=== PATIENT | female | born 1980 | race Caucasian/White ===

== ENCOUNTER 2018-11-29 14:58 | Emergency (ER) | payer BC, OTHER ==
[2018-11-29 15:18] VITALS: PULSE 72
[2018-11-29] MEDS ORDERED: ZOFRAN ODT 4 MG PO ONE (15:30)
[2018-11-29] MEDS ORDERED: MORPHINE SULFATE 4 MG INJ IV ONE (15:30)
[2018-11-29] MEDS ORDERED: Sodium Chloride 0.9% 1000 ML 1,000 ML IV STA (15:30)
--- NOTE | 2018-11-29 15:37 | ERPHSYRPT ---
- History of Present Illness Time Seen by Provider: 11/29/18 15:26 Historian: patient Exam Limitations: no limitations Patient Subjective Stated Complaint: Sudden onset lower abdominal pain with N&V Triage Nursing Assessment: Pt c/o of sudden onset lower abdominal pain that began approx 1.5 hours after eating lunch, BP 157/81, rates pain 8/10, afebrile , bowel sounds heard in all 4 quadrants, came in by wheelchair doubled over and then began vomiting Physician History: 38-year-old white female who arrives with complaint of suprapubic abdominal pain and also burning pain in the periumbilical region. Patient states that she ate lunch and then approximately 1-1/2 hours later she began to have severe crampy abdominal pain suprapubic region associated also with burning pain in the periumbilical region. She states she had vomiting. She continues with the suprapubic abdominal pain and abdominal pain. Past medical history negative past surgical history includes . Social history occasional alcohol, denies tobacco or illicit drug use. Timing/Duration: today (began at approximately 2:30 PM) Activities at Onset: none Quality: burning (Burning pain periumbilical region), cramping (CRAMPING SUPRAPUBIC REGION) Abdominal Pain Onset Location: periumbilical, suprapubic Pain Radiation: no radiation Severity of Pain-Max: moderate Severity of Pain-Current: moderate Modifying Factors: Improves With: eating, other (Patient had eaten one and a half hours prior to onset of symptoms). Worsens With: analgesics, antacids, breathing, coughing, defecating, exercise, lying down, movement, palpation, rest , urinating, vomiting, position, walking Associated Symptoms: nausea, vomiting, No back, No chest pain, No diaphoresis, No diarrhea, No fever/chills, No fatigue, No headache, No heartburn, No loss of appetite, No neck pain, No rash, No shortness of breath, No syncope, No weakness , No other Previous symptoms: no prior history Allergies/Adverse Reactions: No Known Drug Allergies Allergy (Unverified 11/29/18 15:18) Home Medications: Prednisone 10 mg [Deltasone 10 mg] 10 mg PO UD 11/29/18 [History] - Review of Systems Constitutional: No Fever, No Chills Eyes: No Symptoms Ears, Nose, & Throat: No Symptoms Respiratory: No Cough, No Dyspnea Cardiac: No Chest Pain, No Edema, No Syncope Abdominal/Gastrointestinal: Abdominal Pain, Nausea, Vomiting, No Diarrhea, No Constipation, No Hematemesis, No Hematochezia, No Melena, No Dysphagia, No Appetite Changes Genitourinary Symptoms: No Dysuria Musculoskeletal: No Back Pain, No Neck Pain Skin: No Rash Neurological: No Dizziness, No Focal Weakness, No Sensory Changes Psychological: No Symptoms Endocrine: No Symptoms All Other Systems: Reviewed and Negative - Past Medical History Pertinent Past Medical History: No - Past Surgical History Female Surgical History: Section - Social History Smoking Status: Never smoker Exposure to second hand smoke: No Drug Use: none Patient Lives Alone: No - Female History Hx Last Menstrual Period: 11/27/2018 Hx Now: No - Nursing Vital Signs Nursing Vital Signs: Initial Vital Signs Temperature 97.8 F 11/29/18 15:05 Pulse Rate 72 11/29/18 15:05 Respiratory Rate 25 H 11/29/18 15:05 Blood Pressure 157/81 11/29/18 15:05 O2 Sat by Pulse Oximetry 99 11/29/18 15:05 Pain Scale Pain Intensity 4 - Physical Exam General Appearance: moderate distress, alert Eye Exam: PERRL/EOMI, eyes nml inspection Ears, Nose, Throat Exam: normal ENT inspection, pharynx normal, moist mucous membranes Neck Exam: normal inspection, non-tender, supple, full range of motion Respiratory Exam: normal breath sounds, lungs clear, No respiratory distress Cardiovascular Exam: regular rate/rhythm, normal heart sounds, capillary refill <2 sec Gastrointestinal/Abdomen Exam: soft, normal bowel sounds, tenderness ( suprapubic tenderness), No distention, No mass, No ecchymosis, No pulsatile mass , No rebound, No hernia, No hepatomegaly, No organomegaly, No splenomegaly Back Exam: normal inspection, normal range of motion, No CVA tenderness, No vertebral tenderness Extremity Exam: normal inspection, normal range of motion, pelvis stable Neurologic Exam: alert, oriented x 3, cooperative, launch engineer II-XII nml as tested, normal mood/affect, nml cerebellar function, sensation nml, No motor deficits Skin Exam: normal color, warm, dry SpO2 Interpretation: normal (99%) SpO2: 99 - Course Nursing assessment & vital signs reviewed: Yes - CT Exams Abdomen/Pelvis CT Interpretation: Discussed w/radiologist (CT abdomen and pelvis: Impression 1. Large left adnexal cystic mass (6.71.47.0 cm), probably ovary in etiology. tiny cul-de-sac fluid. 2. Fecal stasis without obstruction. 3. Hepatic hemangioma) Ordered Tests: Active Orders 24 hr Category Date Time Status IV Insertion STAT Care 11/29/18 15:30 Active ABDOMEN AND PELVIS W CONTRAST [CT] Stat Exams 11/29/18 16:33 Completed AMYLASE Stat Lab 11/29/18 15:40 Completed CBC W DIFF Stat Lab 11/29/18 15:40 Completed CMP Stat Lab 11/29/18 15:40 Completed HCG QUALITATIVE,SERUM Stat Lab 11/29/18 15:40 Completed LIPASE Stat Lab 11/29/18 15:40 Completed UA W/RFX UR CULTURE Stat Lab 11/29/18 16:36 Completed Medication Summary Discontinued Medications Generic Name Dose Route Start Last Admin Trade Name Freq PRN Reason Stop Dose Admin Sodium Chloride 1,000 mls @ 999 mls/hr 11/29/18 15:30 11/29/18 16:45 Sodium Chloride 0.9% 1000 Ml IV 11/29/18 16:30 Infused .Q1H1M STA Infusion Sodium Chloride Confirm 11/29/18 15:41 Sodium Chloride 0.9% 1000 Ml Administered 11/29/18 15:42 Dose 1,000 mls @ ud .ROUTE .STK-MED ONE Morphine Sulfate 4 mg 11/29/18 15:30 11/29/18 15:42 Morphine Sulfate 4 Mg Inj IV 11/29/18 15:31 4 mg STAT ONE Administration Morphine Sulfate Confirm 11/29/18 15:41 Morphine Sulfate 4 Mg Inj Administered 11/29/18 15:42 Dose 4 mg .ROUTE .STK-MED ONE Ondansetron HCl 4 mg 11/29/18 15:30 11/29/18 15:42 Zofran Odt 4 Mg PO 11/29/18 15:31 4 mg STAT ONE Administration Ondansetron HCl Confirm 11/29/18 15:40 Zofran Odt 4 Mg Administered 11/29/18 15:41 Dose 4 mg .ROUTE .STK-MED ONE Lab/Rad Data: Laboratory Result Diagrams 11/29/18 15:40 11/29/18 15:40 Laboratory Results 11/29/18 11/29/18 11/29/18 Range/Units 16:36 15:40 15:40 WBC (4.0-10.5) K/mm3 RBC (4.1-5.4) M/mm3 Hgb (12.0-16.0) gm/dl Hct (35-47) % MCV (78-100) fl MCH (26-32) pg MCHC (32-36) g/dl RDW (11.5-14.0) % Plt Count (150-450) K/mm3 MPV (6-9.5) fl Gran % (36.0-66.0) % Eos # (Auto) (0-0.5) Absolute Lymphs (auto) (1.0-4.6) Absolute Monos (auto) (0.0-1.3) Lymphocytes % (24.0-44.0) % Monocytes % (0.0-12.0) % Eosinophils % (0.00-5.0) % Basophils % (0.0-0.4) % Absolute Granulocytes (1.4-6.9) Basophils # (0-0.4) Sodium 136 L (137-145) mmol/L Potassium 3.6 (3.5-5.1) mmol/L Chloride 101 (98-107) mmol/L Carbon Dioxide 24 (22-30) mmol/L Anion Gap 14.8 (5-15) MEQ/L BUN 17 (7-17) mg/dL Creatinine 0.66 (0.52-1.04) mg/dL Estimated GFR > 60.0 ML/MIN Glucose 141 H (74-106) mg/dL Calcium 9.5 (8.4-10.2) mg/dL Total Bilirubin 0.30 (0.2-1.3) mg/dL AST 16 (14-36) U/L ALT 19 (0-35) U/L Alkaline Phosphatase 78 (38-126) U/L Serum Total Protein 7.6 (6.3-8.2) g/dL Albumin 4.3 (3.5-5.0) g/dL Amylase 96 (30-110) U/L Lipase 120 (23-300) U/L Serum , Qual NEGATIVE (Negative) Urine Color YELLOW (YELLOW) Urine Appearance CLOUDY (CLEAR) Urine pH 7.0 (5-6) Ur Specific [place] 1.019 (1.005-1.025) Urine Protein NEGATIVE (Negative) Urine Ketones SMALL (NEGATIVE) Urine Blood MODERATE (0-5) Zackary/ul Urine Nitrite NEGATIVE (NEGATIVE) Urine Bilirubin NEGATIVE (NEGATIVE) Urine Urobilinogen NEGATIVE (0-1) mg/dL Ur Leukocyte Esterase NEGATIVE (NEGATIVE) Urine WBC (Auto) 0-2 (0-5) /HPF Urine RBC (Auto) 16-25 (0-2) /HPF U Epithel Cells (Auto) NONE (FEW) /HPF Urine Bacteria (Auto) RARE (NEGATIVE) /HPF Urine Mucus (Auto) SLIGHT (NEGATIVE) /HPF Urine Culture Reflexed NO (NO) Urine Glucose NEGATIVE (NEGATIVE) mg/dL 11/29/18 Range/Units 15:40 WBC 18.1 H (4.0-10.5) K/mm3 RBC 4.60 (4.1-5.4) M/mm3 Hgb 11.5 L (12.0-16.0) gm/dl Hct 36.1 (35-47) % MCV 78.5 (78-100) fl MCH 25.0 L (26-32) pg MCHC 31.9 L (32-36) g/dl RDW 15.8 H (11.5-14.0) % Plt Count 398 (150-450) K/mm3 MPV 10.0 H (6-9.5) fl Gran % 82.3 H (36.0-66.0) % Eos # (Auto) 0.01 (0-0.5) Absolute Lymphs (auto) 2.00 (1.0-4.6) Absolute Monos (auto) 1.16 (0.0-1.3) Lymphocytes % 11.1 L (24.0-44.0) % Monocytes % 6.4 (0.0-12.0) % Eosinophils % 0.1 (0.00-5.0) % Basophils % 0.1 (0.0-0.4) % Absolute Granulocytes 14.91 H (1.4-6.9) Basophils # 0.01 (0-0.4) Sodium (137-145) mmol/L Potassium (3.5-5.1) mmol/L Chloride (98-107) mmol/L Carbon Dioxide (22-30) mmol/L Anion Gap (5-15) MEQ/L BUN (7-17) mg/dL Creatinine (0.52-1.04) mg/dL Estimated GFR ML/MIN Glucose (74-106) mg/dL Calcium (8.4-10.2) mg/dL Total Bilirubin (0.2-1.3) mg/dL AST (14-36) U/L ALT (0-35) U/L Alkaline Phosphatase (38-126) U/L Serum Total Protein (6.3-8.2) g/dL Albumin (3.5-5.0) g/dL Amylase (30-110) U/L Lipase (23-300) U/L Serum , Qual (Negative) Urine Color (YELLOW) Urine Appearance (CLEAR) Urine pH (5-6) Ur Specific [place] (1.005-1.025) Urine Protein (Negative) Urine Ketones (NEGATIVE) Urine Blood (0-5) Zackary/ul Urine Nitrite (NEGATIVE) Urine Bilirubin (NEGATIVE) Urine Urobilinogen (0-1) mg/dL Ur Leukocyte Esterase (NEGATIVE) Urine WBC (Auto) (0-5) /HPF Urine RBC (Auto) (0-2) /HPF U Epithel Cells (Auto) (FEW) /HPF Urine Bacteria (Auto) (NEGATIVE) /HPF Urine Mucus (Auto) (NEGATIVE) /HPF Urine Culture Reflexed (NO) Urine Glucose (NEGATIVE) mg/dL - Progress Progress: improved Progress Note: 11/29/18 17:47 38-year-old white female arrives with complaint of suprapubic abdominal pain and burning pain. Umbilical region associated with nausea and vomiting approximately 1-1/2 hours after eating. Patient arrives in moderate distress she is given normal saline 1 L IV morphine 4 mg IV Zofran 4 mg IV. Patient was elevated white count of 18. Patient's chemistry essentially normal urinalysis with some blood in her urine however patient is on her menstrual period. Patient has a large adnexal cystic mass which is probably ovarian in etiology size 6.71.47.0 cm she has tiny amount of cul-de-sac fluid. She has fecal stasis without obstruction and hepatic hemangioma all noted on CT with contrast. Patient is feeling much better after IV fluids morphine and Zofran. I had briefly discussed this with Dr. fischer who the patient had identified as a local physician . Dr. Fischer felt like the patient could be referred to an OB/ SWITCH ENGINEER physician. I've discussed this with the patient she states that she will obtain an [employer]ROL T[employer]IVER physician on her own and she does not want me to do this at this time. Will go ahead and write for [place] for the patient for pain. She is to take clear fluids only 24-48 hours if nausea vomiting or abdominal pain. She is to follow-up with her [employer]ROL T[employer]IVER physician. She is return for acute distress or for severe symptoms. . - Departure Departure Disposition: Home Clinical Impression: left adnexal cystic mass Abdominal pain Qualifiers: Abdominal location: lower abdomen, unspecified Qualified Code(s): R10.30 - Lower abdominal pain, unspecified Condition: Fair Critical Care Time: No Referrals: ZOHRA CONRAD [Primary Care Provider] - Additional Instructions: Return home. Plenty of fluids clear fluids only 24-48 hours if abdominal pain. You have a large left adnexal cystic mass possibly ovarian on CT. You need to see an PETROL T[employer]ER DRIVER physician to follow this up. This should be as soon as possible. Use state that you would like to set up your own appointment with the PETROL TANKER DRIVER physician [place] 5/325 #10 one orally every 6 hours as needed for pain. Return for acute distress or for severe symptoms. Return for acute distress or for severe symptoms Prescriptions: Hydrocodone/APAP 5-325 Tab^^^ [[place] 5-325 Tablet^^^] 1 tab PO Q6HPRN PRN #10 tablet MDD 6 PRN Reason: Pain
[2018-11-29] MEDS ORDERED: ZOFRAN ODT 4 MG ONE (15:40)
[2018-11-29] MEDS ORDERED: MORPHINE SULFATE 4 MG INJ ONE (15:41)
[2018-11-29] MEDS ORDERED: Sodium Chloride 0.9% 1000 ML 1,000 ML ONE (15:41)
[2018-11-29 15:46] LABS: BASOPHIL % 0.1 % (0.0-0.4); Basophil (Absolute #) 0.01 (0-0.4); Eosinophil % 0.1 % (0.00-5.0); Eosinophil (Absolute #) 0.01 (0-0.5); Granulocyte Absolute (ANC) 14.91 (1.4-6.9); Granulocytes % 82.3 % (36.0-66.0); Hematocrit 36.1 % (35-47); Hemoglobin 11.5 gm/dl (12.0-16.0); Lymphocytes % 11.1 % (24.0-44.0); Mean Cell Volume 78.5 fl (78-100); Mean Corpuscular Hgb Concent. 31.9 g/dl (32-36); Monocyte (Absolute #) 1.16 (0.0-1.3); Monocytes % 6.4 % (0.0-12.0); Platelet Count 398 K/mm3 (150-450); Red Cell Distribution Width 15.8 % (11.5-14.0); White Blood Count 18.1 K/mm3 (4.0-10.5)
[2018-11-29 15:57] LABS: ALBUMIN 4.3 g/dL (3.5-5.0); ALKALINE PHOSPHATASE 78 U/L (38-126); AMYLASE 96 U/L (30-110); ANION GAP 14.8 MEQ/L (5-15); BLOOD UREA NITROGEN 17 mg/dL (7-17); CHLORIDE 101 mmol/L (98-107); Calcium 9.5 mg/dL (8.4-10.2); Carbon Dioxide 24 mmol/L (22-30); Creatinine 1 0.66 mg/dL (0.52-1.04); Glucose 141 mg/dL (74-106); LIPASE 120 U/L (23-300); Potassium 3.6 mmol/L (3.5-5.1); SGOT/AST 16 U/L (14-36); SGPT/ALT 19 U/L (0-35); SODIUM 136 mmol/L (137-145); Total Protein 7.6 g/dL (6.3-8.2)
[2018-11-29 16:57] LABS: Appearance CLOUDY (CLEAR); Bacteria RARE /HPF (NEGATIVE); Bilirubin NEGATIVE (NEGATIVE); Blood MODERATE Ery/ul (0-5); Glucose NEGATIVE (NEGATIVE); Ketones SMALL (NEGATIVE); Leukocyte Esterase NEGATIVE (NEGATIVE); Mucus SLIGHT /HPF (NEGATIVE); Nitrite NEGATIVE (NEGATIVE); Protein,Urine Dip NEGATIVE (Negative); Specific Gravity 1.019 (1.005-1.025); Urobilinogen NEGATIVE mg/dL (0-1); WBC 0-2 /HPF (0-5)
--- NOTE | 2018-11-29 17:22 | XRAY ---
Indication: Lower abdominal pain. Vomiting. No known injury. Multiple contiguous axial images obtained through the abdomen and pelvis using 80 cc Isovue-370 contrast only. Comparison: None Lung bases demonstrates minimal bibasilar dependent atelectasis. No infiltrate or effusion. Heart is not enlarged. Noncontrasted stomach and bowel loops appear nonobstructed. Normal appendix. Mild diffuse scattered colonic fecal debris throughout. Large left adnexal cystic mass overall measuring 6.7 x 1.4 x 7.0 cm with single thin septation probably ovarian in etiology. Tampon in situ. Tiny cul-de-sac free fluid presumed from rupture/leaking cyst. No free air. Incidental 5 cm hepatic hemangioma in the right lobe of liver posteriorly. Remaining liver, gallbladder, pancreas, spleen, adrenal glands, kidneys, ureters, bladder, uterus, and aorta appear unremarkable. No pathologic retroperitoneal lymphadenopathy. Osseous structures intact. No ventral or inguinal hernias. Impression: 1. Large left adnexal cystic mass as detailed probably ovary in etiology. Tiny cul-de-sac fluid. 2. Fecal stasis without obstruction. 3. Hepatic hemangioma. CTDI 21.95
[2018-11-29 17:49] VITALS: BP 125/79
[2018-11-29 17:52] VITALS: O2SAT 99
== END 2018-11-29 18:06 | disposition home or self-care (01) ==
LOC: ED 14:58
DX: R19.09 Other intra-abdominal and pelvic swelling, mass and lump (principal); R10.30 Lower abdominal pain, unspecified
CPT/HCPCS: 36000; 36415; 74177; 80053; 81001; 81025; 82150; 83690; 85025; 96360; 96374; 99284; J2270; Q0162